=== PATIENT | male | born 1985 | race Caucasian/White ===

== ENCOUNTER 2023-04-26 16:10 | Emergency (ER) | payer OTHER ==
[2023-04-26 16:16] VITALS: BP 152/80; PULSE 78; RESP 20; TEMP 97.7; BMI 32.1
== END 2023-04-26 18:42 | disposition home or self-care (01) ==
LOC: JERFT 16:10
DX: S59.911A Unspecified injury of right forearm, initial encounter (principal); X58.XXXA Exposure to other specified factors, initial encounter
CPT/HCPCS: 73070-TC-RT-FY; 73090-TC-RT-FY; 99283-25